=== PATIENT | male | born 1955 | race Two or more races ===

== ENCOUNTER 2017-11-20 21:12 | Emergency (ER) | payer OTHER ==
[~2017-11-20] VITALS: Ht 154.9 cm; Wt 73.2 kg
[2017-11-20 21:51] LABS: HEMATOCRIT 44.8 % (38.0-50.0); HEMOGLOBIN 15.3 G/DL (12.5-16.6); MCH 29.8 PG (29.0-34.0); MCHC 34.2 G/DL (30.0-36.0); MCV 87.2 FL (86-99); PLATELET COUNT 207 K/uL (156-360); RBC DIS.WIDTH-CV 11.7 % (11.8-14.6); RBC DIS.WIDTH-SD 37.3 % (39-53); RED BLOOD COUNT 5.14 M/uL (4.00-5.50)
[2017-11-20 22:04] LABS: ALBUMIN 4.4 g/dL (3.2-4.8); CHLORIDE 102 mEq/L (99-109); POTASSIUM 4.3 mEq/L (3.7-5.4); SODIUM 137 mEq/L (136-147)
[2017-11-20 22:07] LABS: GLUCOSE 192 mg/dL (70-99); TOTAL PROTEIN 7.1 g/dL (6.4-8.3)
[2017-11-20 22:09] LABS: TOTAL BILIRUBIN 0.8 mg/dL (0.0-1.0)
[2017-11-20 22:10] LABS: ALKALINE PHOSPHATASE 79 IU/L (3-129); GFR ESTIMATE (CALCULATED) > 59 mL/min/ (58.99-99999)
[2017-11-20 22:11] LABS: UREA NITROGEN (BUN) 14 mg/dL (9-23)
[2017-11-20 22:12] LABS: AST (GOT) 19 IU/L (2-34)
[2017-11-20 22:13] LABS: ALT (GPT) 28 IU/L (3-49)
[2017-11-20 22:32] LABS: APPEARANCE CLEAR ((CLEAR)); BILIRUBIN NEGATIVE; BLOOD NEGATIVE; COLOR YELLOW ((YELLOW)); GLUCOSE (STRIP) NEGATIVE; KETONES NEGATIVE; LEUKOCYTES NEGATIVE; NITRITE NEGATIVE; PROTEIN (STRIP) NEGATIVE; SPECIFIC GRAVITY 1.012 (1.000-1.030); UCUL ADDED? NO; UROBILINOGEN 0.2 MG/DL (0.2-1.0)
[2017-11-20 23:24] LABS: LIPASE 57 U/L (1.0-51.0)
[2017-11-21 00:31] VITALS: BP 121/73
== END 2017-11-21 00:34 | disposition home or self-care (01) ==
LOC: EME 21:12
DX: K52.9 Noninfective gastroenteritis and colitis, unspecified (principal); E11.9 Type 2 diabetes mellitus without complications; I10 Essential (primary) hypertension
CPT/HCPCS: 74177; 80053; 81003; 83690; 85027; 99281; 99285; J2270; J2405; J7030

== ENCOUNTER 2018-03-29 21:46 | Inpatient (IN) | payer OTHER ==
[~2018-03-29] VITALS: Ht 165.1 cm; Wt 83.2 kg
[2018-03-30 06:31] VITALS: BP 134/69
[2018-03-30] MEDS ORDERED: ALTACE10 MG PO (06:46)
[2018-03-30] MEDS ORDERED: GLUCOPHAGE500 MG PO (06:47)
[2018-03-30] MEDS ORDERED: LIPITOR10 MG PO (06:48)
[2018-03-30 06:50] VITALS: BP 134/69
[2018-03-30 12:05] VITALS: BP 125/69
[2018-03-30 16:55] VITALS: BP 119/75
[2018-03-30 20:31] VITALS: BP 118/71
[2018-03-30 23:54] VITALS: BP 106/62
[2018-03-31 04:10] VITALS: BP 104/60
[2018-03-31 07:21] LABS: CHLORIDE 106 MEQ/L (99-109); CREATININE 0.8 MG/DL (0.6-1.3); GFR ESTIMATE (CALCULATED) > 59 mL/min/ (58.99-99999); GLUCOSE 152 mg/dL (70-99); POTASSIUM 4.4 MEQ/L (3.7-5.4); SODIUM 139 MEQ/L (136-147); UREA NITROGEN (BUN) 13 mg/dL (9-23)
[2018-03-31 07:25] VITALS: BP 116/62
[2018-03-31 15:50] VITALS: BP 112/60
[2018-03-31 23:58] VITALS: BP 130/64
[2018-04-01 07:22] LABS: BASOPHIL (%) 0.3 % (0-1); EOSINOPHIL COUNT 0.2 K/uL (0-0.3); HEMATOCRIT 32.8 % (38.0-50.0); IMMATURE GRANULOCYTE (%) 0.5 % (0.0-0.7); LYMPHOCYTE (%) 17.5 % (15-42); LYMPHOCYTE COUNT 1.5 K/uL (1.0-2.8); MCH 29.3 PG (29.0-34.0); MCHC 32.6 G/DL (30.0-36.0); MCV 89.9 FL (86-99); MONOCYTE (%) 11.1 % (3-12); NEUTROPHIL (%) 68.6 % (45-76); NEUTROPHIL COUNT 6.1 K/uL (1.8-6.4); PLATELET COUNT 199 K/uL (156-360); RBC DIS.WIDTH-CV 11.8 % (11.8-14.6); RBC DIS.WIDTH-SD 38.1 % (39-53); WHITE BLOOD COUNT 8.8 K/uL (4.1-10.2)
[2018-04-01 07:46] LABS: HEMOGLOBIN 10.7 G/DL (12.5-16.6); RED BLOOD COUNT 3.65 M/uL (4.00-5.50)
[2018-04-01 08:12] VITALS: BP 131/76
[2018-04-01 11:38] VITALS: BP 128/68
[2018-04-01 15:35] VITALS: BP 126/66
[2018-04-01 23:38] VITALS: BP 110/69
[2018-04-02] MEDS ORDERED: DOCUSATE SODIU100 MG PO (10:33)
[2018-04-02] MEDS ORDERED: ELIQUIS2.5 MG PO (10:34)
[2018-04-02] MEDS ORDERED: ENDOCET 5-3251 EACH PO (10:34)
== END 2018-04-02 13:18 | disposition home or self-care (01) | DRG 470 ==
LOC: ENRESERV 21:46 → 2SOUTH 03-30 05:47 → ENRESERV 03-30 10:00 → 2SOUTH 03-30 10:09 → 3EAST 03-30 11:30 → 2SOUTH 03-31 09:36 → 3EAST 04-02 13:18
PROVIDERS: Orthopaedic Surgery
PROC: 0SRD0J9 Replacement of Left Knee Joint with Synthetic Substitute, Cemented, Open Approach (ICD-10-PCS; principal; 2018-03-30)
DX: M17.12 Unilateral primary osteoarthritis, left knee (principal)
CPT/HCPCS: 80048; 82948; 85025; 93971; C1713; J0131; J0690; J1100; J1815; J1885; J2250; J2405; J2704; J2795; J3010; J7050; J7120; L1820; S0020